=== PATIENT | female | born 1935 | race Caucasian/White ===

== ENCOUNTER 2021-07-23 11:22 | Observation (INO) ==
[2021-07-23 12:38] LABS: ABS Eosinophils 0.1 10^3/ul (0-0.6); ABS Lymphocytes 1.2 10^3/ul (1.0-4.8); ABS Monocytes 0.3 10^3/ul (0-0.8); ABS Neutrophils 6.5 10^3/ul (1.5-7.7); Eosinophil % 0.6 %; Hematocrit 33 % (35-47); Hemoglobin 10.8 g/dL (12.0-16.0); Lymphocyte % 14.3 %; Mean Corpuscular HGB Conc 33 g/dL (31-36); Mean Corpuscular Hemoglobin 30 pg (27-31); Mean Corpuscular Volume 92 fL (80-97); Mean Platelet Volume 7.7 fL (7.4-10.4); Platelet Count 263 10^3/uL (150-450); Red Blood Count 3.56 10^6 /uL (3.70-4.87); Red Cell Distribution Width 13 % (10-15); White Blood Count 8.1 10^3/uL (3.5-10.8)
[2021-07-23 12:58] LABS: Troponin I 0.01 ng/mL (<0.03)
[2021-07-23 13:00] LABS: Albumin 3.8 g/dL (3.2-5.2); Albumin/Globulin Ratio 1.5 (1-3); Calcium 9.6 mg/dL (8.6-10.3); Globulin 2.6 g/dL (2-4); Potassium 3.9 mmol/L (3.5-5.0); Total Bilirubin 0.3 mg/dL (0.2-1.0); Total Protein 6.4 g/dL (6.4-8.9)
[2021-07-23 15:39] LABS: Urine Appearance Clear; Urine Bilirubin Negative (Negative); Urine Blood Negative (Negative); Urine Color Straw; Urine Glucose Negative (Negative); Urine Ketones Negative (Negative); Urine Nitrite Negative (Negative); Urine Protein Negative (Negative); Urine Specific Gravity 1.004 (1.002-1.030); Urine Urobilinogen Negative (Negative)
[2021-07-23] MEDS ORDERED: Ondansetron 4 mg VIAL 2 MG/ML 2 ml VIAL IV ONE (16:11)
[2021-07-23] MEDS ORDERED: Iodixanol (CONTRAST) 320 MG/ML 100 ML SDV IV ONE (16:37)
[2021-07-23] MEDS: Lactated Ringers 1000 ml BAG 1,000 ML IV SCH ×2 (18:31→23:24)
[2021-07-23] MEDS ORDERED: Magnesium Hydroxide LIQ 30 ML UDC PO PRN (18:47)
[2021-07-23] MEDS ORDERED: Ondansetron 4 mg VIAL 2 MG/ML 2 ml VIAL IV PRN (18:47)
[2021-07-23] MEDS ORDERED: HYDROcodone/ACETAMIN 5/325 mg TAB PO PRN (18:51)
[2021-07-23] MEDS ORDERED: Insulin GLARGINE 100 un/ml 10 ml VIAL SUBCUT SCH (18:52)
[2021-07-23] MEDS ORDERED: Dextrose 50% Syringe 50 ml 25 GM/50 ML SYRINGE IV PUSH PRN (18:53)
[2021-07-23 20:46] LABS: Rapid COVID-19 Molecular Undetected (Undetected)
[2021-07-23] MEDS: Heparin 5000 UNITS/ML 1 mL VIAL SUBCUT SCH (23:29)
[2021-07-24] MEDS: CMCS: Dorzolamide/Timolol OPTH (NF) 10 ML BOT BOTH EYES SCH ×2 (00:51→09:31)
[2021-07-24] MEDS: Heparin 5000 UNITS/ML 1 mL VIAL SUBCUT SCH ×2 (06:01→13:09)
[2021-07-24] MEDS ORDERED: Insulin GLARGINE 100 un/ml 10 ml VIAL SUBCUT SCH (09:00)
[2021-07-24] MEDS: Lactated Ringers 1000 ml BAG 1,000 ML IV SCH (11:09)
[2021-07-24 12:11] VITALS: BP 120/78
== END 2021-07-24 16:20 | disposition home or self-care (01) ==
LOC: ED 11:22 → MEDTELE 11:22
PROVIDERS: ADMIT Hospitalist; ATTEND Hospitalist